=== PATIENT | male | born 1940 | race Caucasian/White ===

== ENCOUNTER → 2021-01-16 11:54 | Outpatient (CLI) | payer MEDICARE, SELFPAY ==
[2021-01-16 14:06] LABS: COVID19 -Nasal RAPID Negative (Negative)
== END ==
PROVIDERS: Visit Provider Student in an Organized Health Care Education/Training Program
DX: Z01.812 Encounter for preprocedural laboratory examination (principal); Z20.822 Contact with and (suspected) exposure to COVID-19
CPT/HCPCS: 87635; C9803

== ENCOUNTER 2021-01-17 09:30 | Day surgery (SDC) | payer MEDICARE, SELFPAY ==
[2021-01-17] MEDS: PROPARACAINE 0.5% OPHTH SOL 2 DROPS EYE-OP (10:00)
[2021-01-17 10:05] VITALS: BP 138/82; PULSE 58; RESP 16; TEMP 36.1; O2SAT 97; BMI 22.4
[2021-01-17] MEDS: CATARACT EYE COMPOUND (10 DROPS/SYRINGE) 3 DROPS EYE-OP (10:05)
--- NOTE | 2021-01-17 11:03 | PM.PREOP ---
Pre-operative Note Interval Note History & Physical reviewed/Exam performed by Physician: Yes Changes to H&P: No
--- NOTE | 2021-01-17 11:03 | PM.OP.1 ---
Operative Date/Time/Diagnoses Pre-op diagnosis: Nuclear cataract right eye Procedure & Clinicians Procedure: Cataract Surgery Same procedure as scheduled: Yes Surgeon: Aftab Ching Anesthesia Type: MAC +/- and Sedation Operative Notes Procedure in detail: Patient brought to the operating suite. Tetracaine drops placed in the right eye. Patient was prepped and draped in sterile manner. Wire lid speculum was placed in the eye. Betadine drops were placed on the eye. This was irrigated. Lidocaine jelly was placed on the eye. A paracentesis port was created with a side-port blade. 0.1 mL 1% preservative free lidocaine was injected into the anterior chamber. The anterior chamber was deepened with viscoelastic. 2.6 mm keratome was used to create a temporal clear corneal incision. Cystotome and Utrata forceps were used to create continuous tear capsulorrhexis. Balanced salt solution was used to hydro dissect the nucleus. The phacoemulsification handpiece was inserted and the nucleus was removed using the stop and chop technique. The irrigation aspiration handpiece was inserted and the remaining cortex was removed. Anterior chamber was deepened with viscoelastic. An Chan ZCB00 intraocular lens with a power of 21.0 was injected into the capsular bag. Irrigation aspiration handpiece was inserted and the remaining viscoelastic was removed. Incision was hydrated with balanced salt solution and found to be leak free with pressure with Weck-Kamilah sponges. 0.1 mL Vigamox injected anterior chamber. 0.3 mL Kenalog 10 mg was injected subconjunctivally. Lid speculum was removed. The patient left the operating room in excellent condition. Complications: none Post-operative Condition: stable Disposition: same day surgery
[2021-01-17] MEDS: BALANCED SALT IRRIG SOLN NO.2 500 ML, EPINEPHrine 1 MG IRR (11:42)
[2021-01-17] MEDS: LIDOCAINE 2% (GLYDO) 6 ML GEL TOP (11:42)
[2021-01-17] MEDS: PHENYLEPHRINE/LIDOCAINE VIAL (OR) 0.2 ML EYE-OP (11:43)
[2021-01-17] MEDS: TRIAMCINOLONE 50 MG/5 ML VIAL INJ (11:43)
[2021-01-17] MEDS: MOXIFLOXACIN INJ 4 MG/0.8 ML VIAL 0.5 MG EYE-OP (11:43)
[2021-01-17] MEDS: CHONDROIDTIN/SOD HYALURONATE 1.05 ML SYRINGE INTRAOCULA (11:44)
[2021-01-17] MEDS: TETRACAINE 0.5% OPHTH DROPS 4 ML 2 DROPS EYE-OP (11:44)
[2021-01-17 11:55] VITALS: BP 126/83; PULSE 58; RESP 18; TEMP 35.8; O2SAT 96
== END 2021-01-17 12:10 | disposition home or self-care (01) ==
PROVIDERS: PCP Family Medicine; Referring Provider Ophthalmology; Visit Provider Ophthalmology
PROC: (CPT 66984; principal; 2021-01-17 11:15)
DX: H25.11 Age-related nuclear cataract, right eye (principal)
CPT/HCPCS: 66984; J0171; J2250; J3301

== ENCOUNTER → 2021-01-30 12:00 | Outpatient (CLI) | payer MEDICARE, SELFPAY ==
[2021-01-30 13:24] LABS: COVID19 -Nasal RAPID Negative (Negative)
== END ==
PROVIDERS: PCP Family Medicine; Visit Provider Student in an Organized Health Care Education/Training Program
DX: Z01.812 Encounter for preprocedural laboratory examination (principal); Z20.822 Contact with and (suspected) exposure to COVID-19
CPT/HCPCS: 87635; C9803

== ENCOUNTER 2021-01-31 10:58 | Day surgery (SDC) | payer MEDICARE, SELFPAY ==
[2021-01-31 11:28] VITALS: BP 127/78; PULSE 58; RESP 13; TEMP 35.9; O2SAT 97; BMI 22.4
[2021-01-31] MEDS: CATARACT EYE COMPOUND (10 DROPS/SYRINGE) 3 DROPS EYE-OP (11:40)
[2021-01-31] MEDS: PROPARACAINE 0.5% OPHTH SOL 2 DROPS EYE-OP (11:40)
--- NOTE | 2021-01-31 12:10 | P.OP_ITS ---
Operative Date/Time/Diagnoses Pre-op diagnosis: Nuclear Cataract Left eye Post-op diagnosis: same Procedure & Clinicians Same procedure as scheduled: Yes Surgeon: Aftab Ching Anesthesia Type: MAC +/- and Sedation Operative Notes Procedure in detail: Patient brought to the operating suite. Tetracaine drops placed in the left eye. Patient was prepped and draped in sterile manner. Wire lid speculum was placed in the eye. Betadine drops were placed on the eye. This was irrigated. Lidocaine jelly was placed on the eye. A paracentesis port was created with a side-port blade. 0.1 mL 1% preservative free lidocaine was injected into the anterior chamber. The anterior chamber was deepened with viscoelastic. 2.6 mm keratome was used to create a temporal clear corneal incision. Cystotome and Utrata forceps were used to create continuous tear capsulorrhexis. Balanced salt solution was used to hydro dissect the nucleus. The phacoemulsification handpiece was inserted and the nucleus was removed using the stop and chop technique. The irrigation aspiration handpiece was inserted and the remaining cortex was removed. Anterior chamber was deepened with viscoe lastic. An Chan DIB00 intraocular lens with a power of 20.5 was injected into the capsular bag. Irrigation aspiration handpiece was inserted and the remaining viscoelastic was removed. Incision was hydrated with balanced salt solution and found to be leak free with pressure with Weck-Kamilah sponges. 0.1 mL Vigamox injected anterior chamber. 0.3 mL Kenalog 10 mg was injected subconjunctivally. Lid speculum was removed. The patient left the operating room in excellent condition. Complications: none Post-operative Condition: stable Disposition: same day surgery
--- NOTE | 2021-01-31 12:10 | PM.PREOP ---
Pre-operative Note Interval Note History & Physical reviewed/Exam performed by Physician: Yes Changes to H&P: No
[2021-01-31] MEDS: CHONDROIDTIN/SOD HYALURONATE 1.05 ML SYRINGE INTRAOCULA (12:16)
[2021-01-31] MEDS: LIDOCAINE 2% (GLYDO) 6 ML GEL TOP (12:16)
[2021-01-31] MEDS: MOXIFLOXACIN INJ 4 MG/0.8 ML VIAL 0.5 MG EYE-OP (12:16)
[2021-01-31] MEDS: BALANCED SALT IRRIG SOLN NO.2 500 ML, EPINEPHrine 1 MG IRR (12:17)
[2021-01-31] MEDS: TRIAMCINOLONE 50 MG/5 ML VIAL INJ (12:17)
[2021-01-31] MEDS: TETRACAINE 0.5% OPHTH DROPS 4 ML 2 DROPS EYE-OP (12:18)
[2021-01-31] MEDS: PHENYLEPHRINE/LIDOCAINE VIAL (OR) 0.2 ML EYE-OP (12:18)
[2021-01-31 12:52] VITALS: BP 109/81; PULSE 66; RESP 16; TEMP 36.2; O2SAT 96
== END 2021-01-31 13:15 | disposition home or self-care (01) ==
PROVIDERS: PCP Family Medicine; Referring Provider Ophthalmology; Visit Provider Ophthalmology
PROC: (CPT 66984; principal; 2021-01-31 12:45)
DX: H25.12 Age-related nuclear cataract, left eye (principal)
CPT/HCPCS: 66984; J0171; J2250; J3301

== ENCOUNTER 2021-08-16 18:08 | Emergency (ER) | payer MEDICARE, SELFPAY ==
[2021-08-16 18:19] VITALS: BP 152/85; PULSE 70; RESP 17; TEMP 36.6; O2SAT 97; BMI 22.8
[2021-08-16 18:32] LABS: Add Manual Diff / Slide Review NO; Basophils Absolute Auto 0 /uL (0-100); Basophils Percent Auto 0.2 % (0-2); Eosinophils Absolute Auto 200 /uL (0-450); Eosinophils Percent Auto 2.4 % (2-4); Hematocrit 46.1 % (41-53); Hemoglobin 15.5 g/dL (13.5-17.5); Lymphocytes Absolute Auto 900 /uL (1100-4500); Lymphocytes Percent Auto 9.6 % (25-40); Mean Corpuscular HGB Conc 33.5 % (30-36); Mean Corpuscular Hemoglobin 31.5 PG (26-34); Mean Corpuscular Volume 93.9 fL (80-100); Monocytes Absolute Auto 900 /uL (0-900); Monocytes Percent Auto 9.6 % (3-14); Neutrophils Absolute Auto 7300 /uL (1500-7000); Neutrophils Percent Auto 78.2 % (50-75); Platelet Count 212 X10^3/uL (150-400); Red Blood Cell Count 4.91 X10^6/uL (4.5-5.9); Red Cell Distribution Width 13.3 % (11.6-14.8); White Blood Cell Count 9.3 X10^3/uL (4.5-11.0)
[2021-08-16 18:46] LABS: Lactate (Lactic Acid) 0.9 mmol/L (0.7-2.1)
[2021-08-16 18:48] LABS: Alanine Aminotransferase 17 IU/L (<50); Albumin 4.1 g/dL (3.5-5.0); Albumin Globulin Ratio 1.4 (1.0-2.8); Alkaline Phosphatase 76 U/L (38-126); Aspartate Aminotransferase 24 IU/L (17-59); BUN Creatinine Ratio 18.3 (6-22); Bilirubin Total 0.7 mg/dL (0.2-1.3); Blood Urea Nitrogen 21 mg/dL (9-20); Carbon Dioxide 29 mmol/L (22-32); Chloride 105 mmol/L (98-107); Estimated Glomerular Filt Rate > 60.0 mL/min (>60); Glucose 113 mg/dL (80-110); HEMOLYSIS < 15 (0-50); Lipase 81 U/L (23-300); Potassium 4.1 mmol/L (3.4-5.1); Sodium 140 mmol/L (137-145); Total Protein 7.1 g/dL (6.3-8.2)
[2021-08-16 19:45] LABS: Bacteria Urine Occasional (0-1); Culture Indicated Urine Cult Not Indicated; Mucus Urine 1+ (Negative); RBC Urine >100/HPF (0-5/HPF); WBC Urine None Seen (0-5/HPF)
--- NOTE | 2021-08-16 22:32 | ED.GENADULT ---
HPI - General Adult General Chief complaint: Abdominal Pain Stated complaint: left lower quad pain x4 hours Time Seen by Provider: 08/16/21 22:01 Source: patient and family Mode of arrival: Ambulatory History of Present Illness HPI narrative: 81-year-old male here for evaluation of left lower quadrant abdominal pain. He states that it started this afternoon. Was a fairly sudden onset. During the time he felt like he had to have a bowel movement but could not. He recently had a laparoscopic prostatectomy. That was 29 days ago. He has had some urinary incontinence since then but that has not changed over the past 24 hours. He feels like he is emptying his bladder. No vomiting. No fevers. He [place] on [address]. Contacted the paramedics who came to evaluate him. It was recommended that he go to the emergency department for further evaluation. He denies any testicular pain. By the time that I evaluated the patient he states that his symptoms have completely resolved. He has had a kidney stone in the past any states this feels different that. Related Data Home Medications Medication Instructions Recorded Confirmed calcium carbonate 500 mg calcium 500 mg PO BID #0 02/13/11 01/31/21 (1,250 mg) chewable tablet dorzolamide 2 %-timolol 0.5 % (PF) 10 ml OP BID #0 05/31/11 01/31/21 eye drops travoprost 0.004 % eye drops 1 drp OPHTHALMIC (EYE) TID #0 05/31/11 01/31/21 cetirizine 10 mg capsule (Zyrtec) 10 mg PO DAILY 01/17/21 01/31/21 latanoprostene bunod 0.024 % eye 1 drp EYE-BOTH DAILY 01/17/21 01/31/21 drops (Vyzulta) Previous Rx's Medication Instructions Recorded acyclovir 400 mg tablet 800 mg PO TID #90 tab 03/26/17 Allergies Allergy/AdvReac Type Severity Reaction Status Date / Time griseofulvin [GRISEOFULVIN] Allergy Unknown ITCH, Verified 08/16/21 18:22 VOMITTING Review of Systems Constitutional Constitutional: Denies fever(s) Cardiovascular Cardiovascular: Denies chest pain and Denies dyspnea Respiratory Respiratory: Denies dyspnea Gastrointestinal Gastrointestinal: Reports as per HPI and Reports system reviewed and no additional complaints, except as documented Genitourinary Genitourinary: Reports system reviewed and no additional complaints, except as documented and Reports as per HPI Integumentary/Breasts Skin/Breast: Reports system reviewed and no additional complaints, except as documented Neurologic Neurologic: Reports system reviewed and no additional complaints, except as documented Hematologic/Lymphatic On Anticoagulants: No Patient History Surgical History H/O prostatectomy Social History household members: spouse Smoking Status: Never smoker alcohol intake: current Smoking Status: Never smoker alcohol intake frequency: a few times a month Substance Use Type: does not use Exam Initial Vital Signs Initial Vital Signs: Vital Signs Temperature 98 F 08/16/21 18:19 Pulse Rate 70 08/16/21 18:19 Respiratory Rate 17 08/16/21 18:19 Blood Pressure 152/85 H 08/16/21 18:19 Pulse Oximetry 97 08/16/21 18:19 HENMT Head: normal to inspection and normocephalic Resp Effort & Inspection: normal respiratory effort Cardio Rate: regular rate GI Inspection: normal to inspection Palpation: soft, No firm, No guarding and No tender Skin Other: Surgical wounds on his abdomen appear well without signs of infection Neuro General: patient alert, patient awake and moves all extremities Extrem General: normal to inspection and capillary refill normal Psych Appearance: grossly normal and well kempt Course Orders Ordered: ED Orders 08/16/21 18:26 Complete Blood Count AUTO DIFF Stat Comprehensive Metabolic Panel Stat Lactate (Lactic Acid) Stat Lipase Stat 08/16/21 18:29 Urine Microscopic Stat Vital Signs Vital signs: Vital Signs - 8 hr 08/16/21 18:19 Temperature 98 F Pulse Rate 70 Respiratory Rate 17 Blood Pressure 152/85 H Pulse Oximetry 97 Medical Decision Making Lab Data Lab results reviewed: Yes I reviewed the patient's lab results. Result diagrams: 08/16/21 18:26 08/16/21 18:26 Labs: Lab Results 08/16/21 08/16/21 08/16/21 Range/Units 18:26 18:26 18:26 WBC 9.3 (4.5-11.0) X10^3/uL RBC 4.91 (4.5-5.9) X10^6/uL Hgb 15.5 (13.5-17.5) g/dL Hct 46.1 (41-53) % MCV 93.9 (80-100) fL MCH 31.5 (26-34) PG MCHC 33.5 (30-36) % RDW 13.3 (11.6-14.8) % Plt Count 212 (150-400) X10^3/uL Neut % (Auto) 78.2 H (50-75) % Lymph % (Auto) 9.6 L (25-40) % Weber % (Auto) 9.6 (3-14) % Eos % (Auto) 2.4 (2-4) % Baso % (Auto) 0.2 (0-2) % Neut # (Auto) 7300 H (8792-4297) /uL Lymph # (Auto) 900 L (3196-5469) /uL Weber # (Auto) 900 (0-900) /uL Eos # (Auto) 200 (0-450) /uL Baso # (Auto) 0 (0-100) /uL Sodium 140 (137-145) mmol/L Potassium 4.1 (3.4-5.1) mmol/L Chloride 105 (98-107) mmol/L Carbon Dioxide 29 (22-32) mmol/L BUN 21 H (9-20) mg/dL Creatinine 1.15 (0.66-1.25) mg/dL Estimated GFR > 60.0 (>60) mL/min BUN/Creatinine Ratio 18.3 (6-22) Glucose 113 H (80-110) mg/dL Lactate 0.9 (0.7-2.1) mmol/L Calcium 9.0 (8.4-10.2) mg/dL Total Bilirubin 0.7 (0.2-1.3) mg/dL AST 24 (17-59) IU/L ALT 17 (<50) IU/L Alkaline Phosphatase 76 (38-126) U/L Total Protein 7.1 (6.3-8.2) g/dL Albumin 4.1 (3.5-5.0) g/dL Globulin 3.0 (1.7-4.1) g/dL Albumin/Globulin Ratio 1.4 (1.0-2.8) Lipase 81 (23-300) U/L Urine RBC (0-5/HPF) Urine WBC (0-5/HPF) Urine Bacteria (None) Urine Mucus (Negative) Ur Culture Indicated? 08/16/21 Range/Units 18:29 WBC (4.5-11.0) X10^3/uL RBC (4.5-5.9) X10^6/uL Hgb (13.5-17.5) g/dL Hct (41-53) % MCV (80-100) fL MCH (26-34) PG MCHC (30-36) % RDW (11.6-14.8) % Plt Count (150-400) X10^3/uL Neut % (Auto) (50-75) % Lymph % (Auto) (25-40) % Weber % (Auto) (3-14) % Eos % (Auto) (2-4) % Baso % (Auto) (0-2) % Neut # (Auto) (9837-2673) /uL Lymph # (Auto) (2984-7328) /uL Weber # (Auto) (0-900) /uL Eos # (Auto) (0-450) /uL Baso # (Auto) (0-100) /uL Sodium (137-145) mmol/L Potassium (3.4-5.1) mmol/L Chloride (98-107) mmol/L Carbon Dioxide (22-32) mmol/L BUN (9-20) mg/dL Creatinine (0.66-1.25) mg/dL Estimated GFR (>60) mL/min BUN/Creatinine Ratio (6-22) Glucose (80-110) mg/dL Lactate (0.7-2.1) mmol/L Calcium (8.4-10.2) mg/dL Total Bilirubin (0.2-1.3) mg/dL AST (17-59) IU/L ALT (<50) IU/L Alkaline Phosphatase (38-126) U/L Total Protein (6.3-8.2) g/dL Albumin (3.5-5.0) g/dL Globulin (1.7-4.1) g/dL Albumin/Globulin Ratio (1.0-2.8) Lipase (23-300) U/L Urine RBC >100/hpf H (0-5/HPF) Urine WBC None seen (0-5/HPF) Urine Bacteria Occasional (0-1) (None) Urine Mucus 1+ H (Negative) Ur Culture Indicated? Cult not indicated Urine Dip Bedside Urine Glucose Negative Bedside Urine Bilirubin - Negative Bedside Urine Ketone - Negative Urine Specific [place] 1.015 Bedside Urine Occult Blood +++ Bedside Urine pH 6.0 Bedside Urine Protein + 30 Bedside Urine Urobilinogen - Negative Bedside Urine Nitrite - Negative Bedside Urine Leukocytes - Negative Esterase Point of care testing: Urine Dip Bedside Urine Glucose Negative Bedside Urine Bilirubin - Negative Bedside Urine Ketone - Negative Urine Specific [place] 1.015 Bedside Urine Occult Blood +++ Bedside Urine pH 6.0 Bedside Urine Protein + 30 Bedside Urine Urobilinogen - Negative Bedside Urine Nitrite - Negative Bedside Urine Leukocytes - Negative Esterase MDM Narrative Medical decision making narrative: Patient his now completely asymptomatic. His labs are unremarkable. He is having urinary incontinence but this is not new since his surgery any states that is actually improving and he was told that this would happen after the surgery. Low suspicion for urinary retention. Had a discussion with him regarding his symptoms. We did discuss obtaining a CT scan for further evaluation versus discharging home and having him return if his symptoms worsen. After this discussion the patient opted to be discharged home. He was given strict return precautions and follow-up instructions. He expressed understanding and agreement. Discharge Plan Departure Patient Disposition: Home Clinical Impression: Abdominal pain Instructions: DI for Abdominal Pain-Adult Activity Restrictions/Additional Instructions: Continue to take all of your medications as directed. I do recommend that you contact your primary doctor for a follow-up and please return to the emergency department for any new or worsening symptoms or return of symptoms that occurred this evening. Prescriptions: No Action calcium carbonate 500 mg calcium (1,250 mg) Tablet,Chewable 500 mg PO BID Qty: 0 0RF travoprost 0.004 % Drops 1 drp OPHTHALMIC (EYE) TID Qty: 0 0RF dorzolamide-timolol (PF) 2-0.5 % Drops 10 ml OP BID Qty: 0 0RF acyclovir 400 MG tablet 800 mg PO TID Qty: 90 1RF Zyrtec 10 mg Capsule 10 mg PO DAILY 0RF Vyzulta 0.024 % drops 1 drp EYE-BOTH DAILY 0RF Referrals: Andi Wu MD [Primary Care Provider] -
== END 2021-08-16 22:49 | disposition home or self-care (01) ==
PROVIDERS: Emergency Provider Emergency Medicine; PCP Family Medicine
DX: R10.32 Left lower quadrant pain (principal)
CPT/HCPCS: 80053; 81003; 81015; 83605; 83690; 85025; 99281; 99283

== ENCOUNTER 2021-08-22 07:40 | Emergency (ER) | payer MEDICARE, SELFPAY ==
[2021-08-22 07:52] VITALS: BP 156/95; PULSE 79; RESP 20; TEMP 36.6; O2SAT 97; BMI 22.8
--- NOTE | 2021-08-22 07:58 | ED.ABDPAIN ---
HPI - Abdominal Pain General Chief Complaint: Abdominal Pain Stated Complaint: Bowel blockage- back from last week Time Seen by Provider: 08/22/21 07:42 Source: patient and family Mode of arrival: Ambulatory Limitations: no limitations History of Present Illness HPI narrative: This is a 81-year-old male who comes to emergency department with complaint of left lower quadrant pain. Patient states he was seen here about a week ago. He had pain at that time but it resolved and they elected not to do additional imaging. It returned overnight and so he has return for re-evaluation. Patient has not had any fevers or chills. No nausea, no vomiting. He has had bowel movements regularly his last was yesterday and was normal, soft without any black or blood. He states he will notice that there will be a lot of bowel sounds when he has pain and that they get louder patient has had some urinary incontinence which he relates to recent prostatectomy 5 weeks ago. He is not appreciating hematuria, dysuria or other changes with urination. Patient states he took 2 Tylenol at 2:00 a.m. and this seemed to improve his pain significantly. Patient uses eyedrops but denies any other medical issues. His prostate was removed for prostate cancer at [facility]. He does take sildenafil every other day on the recommendation of his surgeon for ?healing and ?status post surgery. Patient had back surgery in the lumbar region. Denies any other surgeries. He is allergic to griseofulvin. Patient lives on [address] with his . Dr. Wu is his PCP. He does not smoke, occasional alcohol, no illicit. Related Data Home Medications Medication Instructions Recorded Confirmed calcium carbonate 500 mg calcium 500 mg PO BID #0 02/13/11 01/31/21 (1,250 mg) chewable tablet dorzolamide 2 %-timolol 0.5 % (PF) 10 ml OP BID #0 05/31/11 01/31/21 eye drops travoprost 0.004 % eye drops 1 drp OPHTHALMIC (EYE) TID #0 05/31/11 01/31/21 cetirizine 10 mg capsule (Zyrtec) 10 mg PO DAILY 01/17/21 01/31/21 latanoprostene bunod 0.024 % eye 1 drp EYE-BOTH DAILY 01/17/21 01/31/21 drops (Vyzulta) Previous Rx's Medication Instructions Recorded acyclovir 400 mg tablet 800 mg PO TID #90 tab 03/26/17 oxycodone 5 mg tablet 5 mg PO QID PRN #10 tab 08/22/21 tamsulosin 0.4 mg capsule (Flomax) 0.4 mg PO DAILY #7 cap 08/22/21 Allergies Allergy/AdvReac Type Severity Reaction Status Date / Time griseofulvin [GRISEOFULVIN] Allergy Unknown ITCH, Verified 08/16/21 18:22 VOMITTING Review of Systems Review of Systems ROS Unobtainable: All systems reviewed & are unremarkable except as noted in HPI and below Patient History Surgical History H/O prostatectomy Social History household members: spouse Smoking Status: Never smoker alcohol intake: current Smoking Status: Never smoker alcohol intake frequency: a few times a month Substance Use Type: does not use Exam Narrative Exam Narrative: GENERAL: Alert and oriented x three, male in mild distress. HEENT: Head normocephalic, atraumatic, EOMI, pupils reactive, face symmetric, moist mucous membranes NECK: Supple, full range of motion CARDIOVASCULAR: Regular rate and rhythm without murmurs, rubs or gallops. RESPIRATORY: Breath sounds equal bilaterally, no wheezes rales or rhonchi. ABDOMEN: Soft, nontender. Hyperactive bowel sounds all 4 quadrants. No guarding or rebound, rigidity, no mass. Mildly distended. : No CVA tenderness EXTREMITIES: Normal range of motion, no clubbing or edema. Neurovascularly intact NEUROLOGICAL: Cranial nerves II through XII grossly intact. Moving all extremities SKIN: Warm, dry, no petechiae, no rashes or lesions. Initial Vital Signs Initial Vital Signs: Vital Signs Temperature 97.8 F 08/22/21 07:52 Pulse Rate 79 08/22/21 07:52 Respiratory Rate 20 08/22/21 07:52 Blood Pressure 156/95 H 08/22/21 07:52 Pulse Oximetry 97 08/22/21 07:52 Course Orders Ordered: ED Orders 08/22/21 07:55 Complete Blood Count AUTO DIFF Stat Comprehensive Metabolic Panel Stat Lipase Stat 08/22/21 08:29 CT abdomen pelvis w con Stat 08/22/21 08:55 Urine Microscopic Stat Sodium Chloride (Normal Saline 0.9%) 1,000 mls @ 150 mls/hr IV CONT HIGINIO Last Admin: 08/22/21 08:51 Dose: Not Given Documented by: Discontinued Medications Acetaminophen (Acetaminophen 325 Mg Tablet) 650 mg PO NOW ONE Stop: 08/22/21 07:59 Last Admin: 08/22/21 08:52 Dose: 650 mg Documented by: Sodium Chloride (Normal Saline 0.9%) 1,000 mls @ 1,000 mls/hr IV BOLUS ONE Stop: 08/22/21 10:32 Last Infusion: 08/22/21 10:49 Dose: Infused Documented by: Tamsulosin HCl (Tamsulosin 0.4 Mg Capsule) 0.4 mg PO NOW ONE Stop: 08/22/21 09:32 Last Admin: 08/22/21 09:56 Dose: 0.4 mg Documented by: Consultations Consultation #1: Dr. Hess, recommend adding Flomax. Hydrating the patient here in the department the L of fluids and patient can either follow-up with him or with his urologist as likely a combination of dehydration and his renal stone. Time: 09:34 Vital Signs Vital signs: Vital Signs - 8 hr 08/22/21 07:52 08/22/21 09:19 08/22/21 09:30 Temperature 97.8 F Pulse Rate 79 68 68 Respiratory Rate 20 16 17 Blood Pressure 156/95 H 108/69 Pulse Oximetry 97 94 95 08/22/21 10:00 08/22/21 10:30 Temperature Pulse Rate 66 66 Respiratory Rate 21 19 Blood Pressure 114/71 123/70 Pulse Oximetry 96 97 MDM - Abdominal Pain Lab Data Result diagrams: 08/22/21 07:55 08/22/21 07:55 Labs: Lab Results 08/22/21 08/22/21 08/22/21 Range/Units 07:55 07:55 08:55 WBC 8.7 (4.5-11.0) X10^3/uL RBC 4.93 (4.5-5.9) X10^6/uL Hgb 15.6 (13.5-17.5) g/dL Hct 46.4 (41-53) % MCV 94.2 (80-100) fL MCH 31.6 (26-34) PG MCHC 33.6 (30-36) % RDW 13.5 (11.6-14.8) % Plt Count 174 (150-400) X10^3/uL Neut % (Auto) 76.3 H (50-75) % Lymph % (Auto) 7.7 L (25-40) % [place] % (Auto) 13.1 (3-14) % Eos % (Auto) 2.4 (2-4) % Baso % (Auto) 0.5 (0-2) % Neut # (Auto) 6600 (4144-7911) /uL Lymph # (Auto) 700 L (5404-8355) /uL [place] # (Auto) 1100 H (0-900) /uL Eos # (Auto) 200 (0-450) /uL Baso # (Auto) 0 (0-100) /uL Sodium 137 (137-145) mmol/L Potassium 4.2 (3.4-5.1) mmol/L Chloride 104 (98-107) mmol/L Carbon Dioxide 26 (22-32) mmol/L BUN 30 H (9-20) mg/dL Creatinine 1.97 H (0.66-1.25) mg/dL Estimated GFR 33.0 L (>60) mL/min BUN/Creatinine Ratio 15.2 (6-22) Glucose 97 (80-110) mg/dL Calcium 8.8 (8.4-10.2) mg/dL Total Bilirubin 0.7 (0.2-1.3) mg/dL AST 26 (17-59) IU/L ALT 16 (<50) IU/L Alkaline Phosphatase 80 (38-126) U/L Total Protein 6.9 (6.3-8.2) g/dL Albumin 4.1 (3.5-5.0) g/dL Globulin 2.8 (1.7-4.1) g/dL Albumin/Globulin Ratio 1.5 (1.0-2.8) Lipase 66 (23-300) U/L Urine RBC 10-30/hpf H (0-5/HPF) Urine WBC 0-1/hpf (0-5/HPF) Amorphous Sediment 1+ Urine Bacteria None seen (None) Ur Culture Indicated? Cult not indicated Point of care testing: Urine Dip Bedside Urine Glucose Negative Bedside Urine Bilirubin - Negative Bedside Urine Ketone + 15 Urine Specific [place] 1.025 Bedside Urine Occult Blood +++ Bedside Urine pH 6.0 Bedside Urine Protein - Negative Bedside Urine Urobilinogen - Negative Bedside Urine Nitrite - Negative Bedside Urine Leukocytes - Negative Esterase Imaging Data CT scan - abdomen/pelvis: Radiologist's Impression: Launch?[address] [address] [address] Scan Report Signed Patient: Amanuel Espinoza MR#: [id number] : 1940 Acct:[id number] Age/Sex: 81 / M Date of Service: 08/22/21 Loc: ED Accession Number: [id number] ?? Procedure: CT abdomen pelvis w con Ordering Provider: Ely Bangura D.O. PROCEDURE:? CT ABDOMEN PELVIS W CON ? INDICATIONS:? LLQ pain, had prostatectomy 5wks ago. ? TECHNIQUE:? After the administration of oral and IV contrast, axial sections were acquired from the lung bases to the pubic symphysis.? Coronal and sagittal reformats were performed.? For radiation dose reduction, the following was used:? automated exposure control, adjustment of mA and/or kV according to patient size. ? COMPARISON:? None. ? FINDINGS:? Image quality:? Excellent.? ? Lung bases:? There is mild dependent atelectasis.? 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 ? Heart:? No significant findings. ? ? ABDOMEN: Liver:? There is a focus of coarse calcification in the right hepatic dome compatible with a calcified granuloma.? ? Gallbladder:? Unremarkable.? ? Biliary ducts:? Unremarkable.? ? Pancreas:? Unremarkable.? ? Spleen:? Spleen is normal in size.? 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 Adrenal Glands:? Unremarkable.? ? Kidneys and Ureters:? There is a small obstructing stone measuring up to 0.3 cm at the left ureterovesicular junction with associated mild left hydroureteronephrosis.? There is associated perinephric and periureteral fat stranding.? There is an additional small 0.2 cm nonobstructing stone within the superior pole of the left kidney.? No definite right renal stones.? Bilateral simple appearing renal cysts are noted.? There is no right hydronephrosis.? Right ureter is nondistended. ? Stomach and Bowel:? Stomach, small bowel loops, and colon are normal in caliber and wall thickness.? There is colonic diverticulosis without acute diverticulitis. Peritoneum:? No abnormal intraperitoneal fluid.? No free air.? There is an oval pericolonic nodule along the sigmoid colon measuring up to 1.2 x 0.9 cm on series 2, image 81 demonstrating hypoattenuation centrally.? The findings likely represent a focus of fat necrosis with but the differential includes a necrotic lymph node.? ? Ventral Wall: ? No hernia.? Abdominal Nodes:? No retroperitoneal or mesenteric adenopathy by size criteria.? Vessels:? Aorta and inferior vena cava are normal in size.? ? PELVIS: Pelvic Organs:? There is enhancement along the urethra compatible with sequelae of a transurethral partial prostatectomy. Bladder:? Bladder demonstrates concentric wall thickening with associated mild fat stranding consistent with a cystitis. Pelvic Nodes: No enlarged lymph nodes.? Miscellaneous: No inguinal hernias are seen. ? ? ? Bones:? Visualized osseous structures demonstrate no suspicious focal lesions. ? ? IMPRESSION:? ? 1.? Obstructing stone at the left UVJ with associated mild left hydroureteronephrosis. ? 2. Additional small nonobstructing left renal stone. ? 3. Postsurgical changes consistent with prior trans urethral prosthetic resection. ? 4. Small oval pericolonic nodule along the sigmoid colon likely represents a focus fat necrosis but the differential includes a necrotic lymph node.? If clinically indicated, a follow-up study may be performed in 3-6 months to demonstrate stability or resolution.? ? ? Dictated by: Rodrigo Patel M.D. on 08/22/2021 at 8:07 ? ? Approved by: Rodrigo Patel M.D. on 08/22/2021 at 8:16 MDM Narrative Medical decision making narrative: This is a 81 year old male who comes to the emergency department with complaint of left lower abdominal pain that has been intermittent. He had symptoms and was seen here earlier in the week. It resolved and then came back overnight. Patient's pain is been controlled with Tylenol he had a 2nd dose here had been 6 hours since his last. And he is currently pain controlled. It is noted he has a 3 mm stone on the left. He does have a change in his renal function as well as an elevated his BUN. Patient states he has not been drinking much fluids for the last day or 2. He did have a prostatectomy [address] Ching at [facility]. Patient notes he has had kidney stones remotely but he states they were significantly worse at that time. Patient denies fevers or chills or other symptoms. His other labs are reassuring his urine shows hematuria but no signs of infection he does not appear to be septic. Plan to add Flomax as he is not currently taking any. Discussed with our local urologist who is happy to see him or patient prefers can follow up with his urologist [facility]. Patient prefers to follow locally. He is scheduled to have his PSA recheck tomorrow and we discussed rechecking his BMP after receiving fluids here in the department and patient is to return for any worsening symptoms. Patient and family are aware of his renal abnormalities and that if he were having worsening renal function he might need intervention sooner. Discharge Plan Departure Patient Disposition: Home Clinical Impression: Kidney stone on left side Instructions: DI for Kidney Stones Activity Restrictions/Additional Instructions: Follow up with Dr. Hess for urology, call for an appointment. Your renal function has decreased from earlier this month and needs to be rechecked in the next 24 hours when you get your PSA level rechecked. An order is included. There is a small nodule near the sigmoid colon is recommended to have repeat CT imaging in 3-6 months to evaluate for necrotic lymph node. Take flomax once daily until gone. You may take Tylenol up to a 1000 mg every 8 hours as needed for pain. If this is an adequate you may take 1 tablet of oxycodone every 6 hours as needed. This medication can make you sleepy do not drive, perform hazardous activities or make any major decisions while taking it. This medication will make you constipated please take a stool softener once to twice daily until stools are soft and regular. Prescription sent to Please return for fevers, new or worsening pain, vomiting, lightheadedness, difficulty with urination or decrease in urine output or other new or concerning symptoms. Prescriptions: New tamsulosin [Flomax] 0.4 mg capsule 0.4 mg PO DAILY Qty: 7 0RF oxycodone 5 mg tablet 5 mg PO QID PRN (Reason: pain) Qty: 10 0RF No Action calcium carbonate 500 mg calcium (1,250 mg) Tablet,Chewable 500 mg PO BID Qty: 0 0RF travoprost 0.004 % Drops 1 drp OPHTHALMIC (EYE) TID Qty: 0 0RF dorzolamide-timolol (PF) 2-0.5 % Drops 10 ml OP BID Qty: 0 0RF acyclovir 400 MG tablet 800 mg PO TID Qty: 90 1RF Zyrtec 10 mg Capsule 10 mg PO DAILY 0RF Vyzulta 0.024 % drops 1 drp EYE-BOTH DAILY 0RF Referrals: Mehdi Ching MD [Non-Staff] - Mina Hess MD [Physician] - Andi Wu MD [Primary Care Provider] -
[2021-08-22 08:06] LABS: Add Manual Diff / Slide Review NO; Basophils Absolute Auto 0 /uL (0-100); Basophils Percent Auto 0.5 % (0-2); Eosinophils Absolute Auto 200 /uL (0-450); Eosinophils Percent Auto 2.4 % (2-4); Hematocrit 46.4 % (41-53); Hemoglobin 15.6 g/dL (13.5-17.5); Lymphocytes Absolute Auto 700 /uL (1100-4500); Lymphocytes Percent Auto 7.7 % (25-40); Mean Corpuscular HGB Conc 33.6 % (30-36); Mean Corpuscular Hemoglobin 31.6 PG (26-34); Mean Corpuscular Volume 94.2 fL (80-100); Monocytes Absolute Auto 1100 /uL (0-900); Monocytes Percent Auto 13.1 % (3-14); Neutrophils Absolute Auto 6600 /uL (1500-7000); Neutrophils Percent Auto 76.3 % (50-75); Platelet Count 174 X10^3/uL (150-400); Red Blood Cell Count 4.93 X10^6/uL (4.5-5.9); Red Cell Distribution Width 13.5 % (11.6-14.8); White Blood Cell Count 8.7 X10^3/uL (4.5-11.0)
[2021-08-22 08:17] LABS: Alanine Aminotransferase 16 IU/L (<50); Albumin 4.1 g/dL (3.5-5.0); Albumin Globulin Ratio 1.5 (1.0-2.8); Alkaline Phosphatase 80 U/L (38-126); Aspartate Aminotransferase 26 IU/L (17-59); BUN Creatinine Ratio 15.2 (6-22); Bilirubin Total 0.7 mg/dL (0.2-1.3); Blood Urea Nitrogen 30 mg/dL (9-20); Calcium 8.8 mg/dL (8.4-10.2); Carbon Dioxide 26 mmol/L (22-32); Chloride 104 mmol/L (98-107); Globulin 2.8 g/dL (1.7-4.1); Glucose 97 mg/dL (80-110); HEMOLYSIS 18 (0-50); Lipase 66 U/L (23-300); Potassium 4.2 mmol/L (3.4-5.1); Sodium 137 mmol/L (137-145); Total Protein 6.9 g/dL (6.3-8.2)
--- NOTE | 2021-08-22 08:29 | DI.CT.S_ITS ---
PROCEDURE: CT ABDOMEN PELVIS W CON INDICATIONS: LLQ pain, had prostatectomy 5wks ago. TECHNIQUE: After the administration of oral and IV contrast, axial sections were acquired from the lung bases to the pubic symphysis. Coronal and sagittal reformats were performed. For radiation dose reduction, the following was used: automated exposure control, adjustment of mA and/or kV according to patient size. COMPARISON: None. FINDINGS: Image quality: Excellent. Lung bases: There is mild dependent atelectasis. 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 Heart: No significant findings. ABDOMEN: Liver: There is a focus of coarse calcification in the right hepatic dome compatible with a calcified granuloma. Gallbladder: Unremarkable. Biliary ducts: Unremarkable. Pancreas: Unremarkable. Spleen: Spleen is normal in size. 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 Adrenal Glands: Unremarkable. Kidneys and Ureters: There is a small obstructing stone measuring up to 0.3 cm at the left ureterovesicular junction with associated mild left hydroureteronephrosis. There is associated perinephric and periureteral fat stranding. There is an additional small 0.2 cm nonobstructing stone within the superior pole of the left kidney. No definite right renal stones. Bilateral simple appearing renal cysts are noted. There is no right hydronephrosis. Right ureter is nondistended. Stomach and Bowel: Stomach, small bowel loops, and colon are normal in caliber and wall thickness. There is colonic diverticulosis without acute diverticulitis. Peritoneum: No abnormal intraperitoneal fluid. No free air. There is an oval pericolonic nodule along the sigmoid colon measuring up to 1.2 x 0.9 cm on series 2, image 81 demonstrating hypoattenuation centrally. The findings likely represent a focus of fat necrosis with but the differential includes a necrotic lymph node. Ventral Wall: No hernia. Abdominal Nodes: No retroperitoneal or mesenteric adenopathy by size criteria. Vessels: Aorta and inferior vena cava are normal in size. PELVIS: Pelvic Organs: There is enhancement along the urethra compatible with sequelae of a transurethral partial prostatectomy. Bladder: Bladder demonstrates concentric wall thickening with associated mild fat stranding consistent with a cystitis. Pelvic Nodes: No enlarged lymph nodes. Miscellaneous: No inguinal hernias are seen. Bones: Visualized osseous structures demonstrate no suspicious focal lesions. IMPRESSION: 1. Obstructing stone at the left UVJ with associated mild left hydroureteronephrosis. 2. Additional small nonobstructing left renal stone. 3. Postsurgical changes consistent with prior trans urethral prosthetic resection. 4. Small oval pericolonic nodule along the sigmoid colon likely represents a focus fat necrosis but the differential includes a necrotic lymph node. If clinically indicated, a follow-up study may be performed in 3-6 months to demonstrate stability or resolution. Dictated by: Rodrigo Patel M.D. on 08/22/2021 at 8:07 Approved by: Rodriog Patel M.D. on 08/22/2021 at 8:16
[2021-08-22] MEDS: ACETAMINOPHEN 325 MG TABLET 650 MG PO (08:52)
[2021-08-22 09:19] VITALS: PULSE 68; RESP 16; O2SAT 94
[2021-08-22 09:22] LABS: RBC Urine 10-30/HPF (0-5/HPF); WBC Urine 0-1/HPF (0-5/HPF)
[2021-08-22 09:23] LABS: Amorphous Sediment Urine 1+; Bacteria Urine None Seen; Culture Indicated Urine Cult Not Indicated
[2021-08-22 09:30] VITALS: BP 108/69; PULSE 68; RESP 17; O2SAT 95
[2021-08-22] MEDS: SODIUM CHLORIDE 0.9% 1,000 ML 1000 ML IV (09:56)
[2021-08-22] MEDS: TAMSULOSIN 0.4 MG CAPSULE PO (09:56)
[2021-08-22 10:00] VITALS: BP 114/71; PULSE 66; RESP 21; O2SAT 96
[2021-08-22 10:30] VITALS: BP 123/70; PULSE 66; RESP 19; O2SAT 97
== END 2021-08-22 10:56 | disposition home or self-care (01) ==
PROVIDERS: Emergency Provider Emergency Medicine; PCP Family Medicine
DX: N20.0 Calculus of kidney (principal)
CPT/HCPCS: 36415; 74177; 80053; 81003; 81015; 83690; 85025; 96360; 99284

== ENCOUNTER → 2021-08-30 09:08 | Outpatient (CLI) | payer MEDICARE, SELFPAY ==
[2021-09-04 12:08] LABS: Ca oxalate dihydrate 10 % (.); Ca oxalate monohydr 90 % (.); Size 5x5 mm (.)
== END ==
PROVIDERS: PCP Family Medicine; Referring Provider Family Medicine; Visit Provider Family Medicine
DX: N20.0 Calculus of kidney (principal)
CPT/HCPCS: 82365